=== PATIENT | female | born 1995 | race American Indian/Alaskan Native ===

== ENCOUNTER 2022-04-22 08:48 | Emergency (ER) | payer MEDICAID ==
[2022-04-22 08:54] VITALS: BP 121/75
== END 2022-04-22 12:24 | disposition left against medical advice (07) ==
LOC: ED 08:48
DX: Z20.2 Contact with and (suspected) exposure to infections with a predominantly sexual mode of transmission (principal); Z53.21 Procedure and treatment not carried out due to patient leaving prior to being seen by health care provider